=== PATIENT | male | born 1960 | race Two or more races ===

== ENCOUNTER 2018-05-06 12:47 | Emergency (ER) | payer MEDICAID, OTHER ==
[~2018-05-06] VITALS: Ht 172.7 cm; Wt 68.0 kg
[2018-05-06] MEDS ORDERED: ONDANSETRON HCL 4 MG/2 ML VIAL IM ONE (14:00)
[2018-05-06] MEDS ORDERED: TETANUS-DIPTH-ACEL PERTUSSIS 0.5ML SYRG IM ONE (14:00)
[2018-05-06] MEDS ORDERED: HYDROmorphone HCL 2 MG/ML VL IM ONE (14:00)
[2018-05-06] MEDS ORDERED: cefTRIAXone SOD 1,000 MG VL IM ONE (14:00)
[2018-05-06] MEDS ORDERED: HYDROmorphone HCL 2 MG/ML VL IV ONE (14:15)
[2018-05-06] MEDS ORDERED: ONDANSETRON HCL 4 MG/2 ML VIAL IV ONE (14:15)
[2018-05-06] MEDS ORDERED: cefTRIAXone 1GM/50ML D5W 50 ML IV ONE (14:15)
[2018-05-06] MEDS ORDERED: IBUPROFEN 800 MG TAB PO ONE (17:45)
[2018-05-06 17:53] VITALS: BP 155/96
== END 2018-05-06 18:38 | disposition home or self-care (01) ==
LOC: ER 13:09
DX: S82.832A Other fracture of upper and lower end of left fibula, initial encounter for closed fracture (principal); S91.012A Laceration without foreign body, left ankle, initial encounter; I10 Essential (primary) hypertension; W20.8XXA Other cause of strike by thrown, projected or falling object, initial encounter; Y93.89 Activity, other specified; Y99.8 Other external cause status; Y92.89 Other specified places as the place of occurrence of the external cause
CPT/HCPCS: 12004; 73600; 90471; 90715; 96365; 96375; 99283; J0696; J1170; J2405

== ENCOUNTER 2018-05-20 08:56 | Emergency (ER) | payer MEDICAID ==
[~2018-05-20] VITALS: Ht 170.2 cm; Wt 54.4 kg
[2018-05-20 10:13] VITALS: BP 152/107
== END 2018-05-20 10:34 | disposition home or self-care (01) ==
LOC: ER 08:56
DX: S91.012D Laceration without foreign body, left ankle, subsequent encounter (principal); I10 Essential (primary) hypertension; X58.XXXD Exposure to other specified factors, subsequent encounter

== ENCOUNTER 2018-05-27 08:24 | Emergency (ER) | payer MEDICAID ==
[~2018-05-27] VITALS: Ht 170.2 cm; Wt 68.9 kg
[2018-05-27 08:38] VITALS: BP 159/109
== END 2018-05-27 08:59 | disposition home or self-care (01) ==
LOC: ER 08:24
DX: S91.012D Laceration without foreign body, left ankle, subsequent encounter (principal); I10 Essential (primary) hypertension; X58.XXXD Exposure to other specified factors, subsequent encounter